=== PATIENT | female | born 1950 | race American Indian/Alaskan Native ===

== ENCOUNTER 2017-03-03 08:46 | Outpatient (CLI) | payer MEDICAID ==
--- NOTE | 2017-03-03 10:24 | Ultrasound Report ---
ULTRASOUND ABDOMEN COMPLETE: Technique: Transabdominal ultrasound with color Doppler interrogation. History: abdominal pain. Findings: The liver is normal size, contour and echotexture. There are a few small shadowing gallstones within the gallbladder measuring up to 5 mm. No abnormal gallbladder distention, wall thickening or surrounding fluid. The CBD is borderline measuring 5.7 cm in diameter. No obvious choledocholithiasis on ultrasound. The visualized portions of the pancreas including the head and proximal body are within normal limits. The kidneys demonstrate no hydronephrosis or mass. Cortical thickness and echogenicity are within normal limits bilaterally. The spleen and aorta are within normal limits. No aneurysmal dilatation is noted. No ascites. IMPRESSION: Cholelithiasis. Borderline caliber of the common bile duct although no choledocholithiasis is demonstrated on ultrasound. Please correlate with the patient's clinical symptoms. If further evaluation is needed, MRCP could be obtained.
== END 2017-03-03 08:47 | disposition home or self-care (01) ==
LOC: US 08:46
PROVIDERS: ATTEND Internal Medicine
DX: K80.20 Calculus of gallbladder without cholecystitis without obstruction (principal); E11.9 Type 2 diabetes mellitus without complications; I10 Essential (primary) hypertension; E78.5 Hyperlipidemia, unspecified
CPT/HCPCS: 76700

== ENCOUNTER 2017-03-24 09:25 | Outpatient (CLI) | payer MEDICAID ==
--- NOTE | 2017-03-26 09:16 | Mammography Report ---
BONE DEXA:03/24/17 09:25:00 CLINICAL: Postmenopausal. No comparison. TECHNIQUE: Two site bone DEXA performed on an Hologic scanner. FINDINGS: The average BMD of the lumbar spine L1-L4 is 1.084g/cm squared with a T-score of -0.6 and a Z-score of 1.6. The average BMD of the left hip is 0.954g/cm squared with a T-score of -0.5 and a Z-score of +0.6. IMPRESSION: WHO classification: Normal with average fracture risk based on both spine and left hip measurements. RECOMMENDATION: Clinical correlation and routine screening. DEFINITIONS: BMD = Bone Mineral Density T-score = BMD related to mean peak bone mass of young adult (mean expressed in Standard Deviation) Z-score = Age matched BMD expressed in SD World Health Organization (WHO) Diagnostic Criteria Normal T-score > -1 SD Osteopenia T-score between -1 and -2.4 SD Osteoporosis T-score -2.5 SD or below NOTE: BMD is not the only risk factor for fracture. One should also consider factors such as the patient's age, risk of falling, previous osteoporotic fracture, family history of osteoporotic fractures, current smoker, and low body weight. Z-scores are not calculated if >80 years of age.
== END 2017-03-24 09:26 | disposition home or self-care (01) ==
LOC: SPVWC 09:25
PROVIDERS: ATTEND Internal Medicine
DX: M85.80 Other specified disorders of bone density and structure, unspecified site (principal); Z78.0 Asymptomatic menopausal state
CPT/HCPCS: 77080